=== PATIENT | female | born 1950 | race Caucasian/White ===

== ENCOUNTER → 2020-03-29 09:25 | Outpatient (CLI) | payer MEDICARE, BC, SELFPAY ==
--- NOTE | 2020-03-29 | DI.MRI.S_ITS ---
PROCEDURE: MR KNEE RT WO CON INDICATIONS: Other tear of medial meniscus, current injury TECHNIQUE: Noncontrast sagittal PD fast spin echo and T2 fast spin echo with fat saturation, sagittal 3-D FLASH with fat saturation; coronal T1 spin echo and PD fast spin echo with fat saturation, and axial PD fast spin echo with fat saturation through the knee. COMPARISON: [facility], MR, KNEE WITHOUT CONTRAST, 11/11/2016, 10:08. FINDINGS: Image quality: Excellent. Menisci: The medial and lateral menisci demonstrate normal morphology and internal signal. The meniscal root ligaments appear intact. Cruciate ligaments: The anterior and posterior cruciate ligaments appear intact. Medial structures: Low-grade MCL sprain is seen. The posterior oblique ligament, semimembranosus tendon insertions, oblique popliteal ligament, and meniscocapsular junction appear intact. Visualized portions of the pes anserinus tendons appear normal. No abnormal bursal fluid. Lateral structures: The lateral collateral ligament, long and short heads of the biceps femoris tendon appear intact. The popliteus tendon appears normal; the popliteofibular ligament appears intact. The posterosuperior and anteroinferior popliteomeniscal fascicles appear intact. The arcuate and fabellofibular ligaments appear intact, on either side of the lateral inferior geniculate artery. Iliotibial band appears normal. Anterior structures: The quadriceps and patellar tendons appear intact. Patellar alignment is normal. No femoral trochlear dysplasia or ventral trochlear prominence. No edema in the infrapatellar fat pad. Bones and cartilage: There is marrow edema involving medial portion of proximal tibia extending to medial tibial plateau with subtle subcortical hypointense signal concerning for incomplete subcortical fracture in this area. No other area of abnormal marrow signal. The cartilage of the medial and lateral femorotibial compartments appears normal in thickness. 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 Joint space: There is small to moderate amount of joint fluid. No Mantilla's cyst. Normal appearing synovial plicae are incidentally noted. IMPRESSION: 1. Marrow edema involving medial portion of proximal tibia extending to medial tibial plateau, which may represent bony contusion. Subtle incomplete subcortical fracture in this region cannot be excluded. No other fracture or dislocation. Low-grade chondromalacia patella as above. Small to moderate amount of joint fluid. 2. There is no evidence of focal meniscal tear. 3. Cruciate ligaments are intact. Low-grade MCL sprain. Dictated by: Bk Fitch M.D. on 03/29/2020 at 11:48 Approved by: Bk Fitch M.D. on 03/29/2020 at 11:53
== END ==
PROVIDERS: Family Provider Internal Medicine; PCP Internal Medicine; Referring Provider Orthopaedic Surgery; Visit Provider Orthopaedic Surgery
DX: S83.241A Other tear of medial meniscus, current injury, right knee, initial encounter (principal); S83.411A Sprain of medial collateral ligament of right knee, initial encounter; M22.41 Chondromalacia patellae, right knee
CPT/HCPCS: 73721

== ENCOUNTER 2021-03-27 08:54 | Emergency (ER) | payer MEDICARE, BC, SELFPAY ==
[2021-03-27] VITALS (15 sets, daily range): BP systolic 141–196; BP diastolic 74–87; PULSE 55–77; RESP 15–35; TEMP 36.8; O2SAT 89–99; BMI 29.2
--- NOTE | 2021-03-27 09:09 | DI.RAD.S_ITS ---
PROCEDURE: XR CHEST 1V INDICATIONS: chest pain TECHNIQUE: One view of the chest was acquired. COMPARISON: None. FINDINGS: Surgical changes and devices: None. Lungs and pleura: Lungs are clear. No pleural effusions or pneumothorax. Mediastinum: Mediastinal contours appear normal. Heart size is normal. Bones and chest wall: No suspicious bony lesions. Overlying soft tissues appear unremarkable. IMPRESSION: Normal for age, source of current chest pain symptoms is not seen. Dictated by: Dwight Horton M.D. on 03/27/2021 at 8:30 Approved by: Dwight Horton M.D. on 03/27/2021 at 8:31
[2021-03-27 09:32] LABS: Add Manual Diff / Slide Review NO; Basophils Absolute Auto 0 /uL (0-100); Basophils Percent Auto 0.6 % (0-2); Eosinophils Absolute Auto 100 /uL (0-450); Eosinophils Percent Auto 1.4 % (2-4); Hematocrit 42.2 % (36-46); Lymphocytes Absolute Auto 1400 /uL (1100-4500); Lymphocytes Percent Auto 20.4 % (25-40); Mean Corpuscular HGB Conc 33.2 % (30-36); Mean Corpuscular Volume 87.4 fL (80-100); Monocytes Absolute Auto 600 /uL (0-900); Monocytes Percent Auto 8.2 % (3-14); Neutrophils Absolute Auto 4800 /uL (1500-7000); Neutrophils Percent Auto 69.4 % (50-75); Platelet Count 290 X10^3/uL (150-400); Red Blood Cell Count 4.83 X10^6/uL (4.0-5.2); Red Cell Distribution Width 14.3 % (11.6-14.8)
[2021-03-27 09:35] LABS: Alanine Aminotransferase 30 IU/L (<35); Albumin 4.5 g/dL (3.5-5.0); Albumin Globulin Ratio 1.5 (1.0-2.8); Alkaline Phosphatase 84 U/L (38-126); Aspartate Aminotransferase 31 IU/L (14-36); BUN Creatinine Ratio 35.6 (6-22); Bilirubin Total 0.4 mg/dL (0.2-1.3); Blood Urea Nitrogen 26 mg/dL (7-17); Calcium 9.9 mg/dL (8.4-10.2); Carbon Dioxide 27 mmol/L (22-32); Chloride 102 mmol/L (98-107); Creatine Kinase 31 U/L (30-135); Estimated Glomerular Filt Rate > 60.0 mL/min (>60); Globulin 3.1 g/dL (1.7-4.1); Glucose 113 mg/dL (80-110); HEMOLYSIS < 15 (0-50); Lipase 75 U/L (23-300); Sodium 136 mmol/L (137-145); Total Protein 7.6 g/dL (6.3-8.2)
--- NOTE | 2021-03-27 09:40 | ED_ITS ---
HPI - Chest Pain General Chief Complaint: Chest Pain Stated Complaint: HEART FEELS FLUTTERY AND SLOW Time Seen by Provider: 03/27/21 09:20 Source: patient Mode of arrival: Ambulatory Limitations: no limitations History of Present Illness HPI narrative: Patient is a 70-year-old female who presents with chest palpitat ions. For the last couple of weeks she has been taking her oxygen and heart rate. She has noticed her heart rate as low as 39-40 at times. She denies any dizziness or lightheadedness. She has not passed out or felt lightheaded. She started noticing some palpitations she has taken her blood pressure the last few days it has been elevated the lowest his with a systolic of 150 and the highest is a systolic of 180. She is currently quite hypertensive in the emergency department with a systolic greater than 200. She denies any shortness of breath no headache weakness numbness or tingling. She has no prior history of hypertension. She is noted to have frequent PVCs on the monitor and on her EKG. She takes 1 caffeine pill a day which she says is equivalent to 1 cup of coffee daily. She has history of adult pyloric stenosis and had surgery for that so she is quite nauseous and sensitive to nausea. She is frequently nauseous but does not seem to be any worse today. No vomiting. MD complaint: other (Palpitations) Related Data Allergies Allergy/AdvReac Type Severity Reaction Status Date / Time meperidine [From Demerol] Allergy Verified 03/27/21 09:57 Review of Systems Review of Systems Narrative: GENERAL: Denies chills, fatigue, malaise, fever, sweats, travel HEENT: Denies sinus pain, ear pain, sore throat, difficulty swallowing, neck pain RESPIRATORY: Denies dyspnea, cough, wheezing, hemoptysis, sputum. CARDIOVASCULAR: See HPI GASTROINTESTINAL: Denies nausea, vomiting, abdominal pain, diarrhea, constipation, melena. : Denies dysuria, frequency, incontinence, hematuria, urinary retention, flank pain. MUSCULOSKELETAL: Denies weakness, joint pain, or bony pain SKIN: No rash, no erythema, no pruritus NEUROLOGIC: Denies weakness, dizziness, headache, numbness, change in speech, confusion PSYCHIATRIC: No concerning psychosocial issues. 12 point review of systems is negative except for those stated above and HPI Patient History Medical History Hypothyroid Social History Smoking Status: Never smoker Exam Initial Vital Signs Initial Vital Signs: Vital Signs Temperature 98.2 F 03/27/21 09:52 Pulse Rate 77 03/27/21 09:52 Respiratory Rate 15 03/27/21 09:52 Blood Pressure 187/84 H 03/27/21 09:52 Pulse Oximetry 99 03/27/21 09:52 GENERAL: Alert 70-year-old female very pleasant and in no acute distress. HEENT: Head atraumatic,EOMI, pupils reactive, face symmetric, moist mucous membranes CARDIOVASCULAR: Regular rate and rhythm without murmurs, rubs or gallops. RESPIRATORY: Breath sounds equal bilaterally, no wheezes rales or rhonchi. ABDOMEN: Soft, nontender. Normoactive bowel sounds all 4 quadrants. No guarding or rebound. : No CVA tenderness EXTREMITIES: Normal range of motion, no clubbing or edema. Neurovascularly intact NEUROLOGICAL: Alert and oriented x4.Normal gait and speech. SKIN: Warm, dry, no laceration, no petechiae, no rashes or lesions. Course Orders Ordered: Discontinued Medications Sodium Chloride (Normal Saline 0.9%) 1,000 mls @ 1,000 mls/hr IV BOLUS ONE Stop: 03/27/21 10:55 Last Infusion: 03/27/21 11:41 Dose: 0 mls/hr Documented by: Admin: 03/27/21 10:01 Dose: 1,000 mls/hr Documented by: MELISSA Sodium Chloride (Normal Saline 0.9%) 1,000 mls @ 1,000 mls/hr IV BOLUS ONE Stop: 03/27/21 10:59 Last Admin: 03/27/21 10:01 Dose: Not Given Documented by: MELISSA Metoprolol Tartrate (Metoprolol Tartrate 5 Mg/5 Ml Inj) 5 mg IV NOW ONE Stop: 03/27/21 10:46 Last Admin: 03/27/21 11:05 Dose: 5 mg Documented by: MELISSA Vital Signs Vital signs: Vital Signs - 8 hr 03/27/21 10:41 03/27/21 10:50 03/27/21 11:06 Pulse Rate 69 64 68 Respiratory Rate 29 H 28 H Blood Pressure 196/86 H 184/86 H Pulse Oximetry 97 98 89 L 03/27/21 11:08 03/27/21 11:10 03/27/21 11:20 Pulse Rate 67 62 55 L Respiratory Rate 20 26 H 27 H Blood Pressure 184/87 H 165/84 H 168/74 H Pulse Oximetry 99 97 98 03/27/21 11:30 03/27/21 12:14 Pulse Rate 57 L 61 Respiratory Rate 35 H 24 Blood Pressure 141/83 H 151/83 H Pulse Oximetry 99 96 MDM - Chest Pain Lab Data Attestation: I reviewed the patient's lab results. Result diagrams: 03/27/21 09:10 03/27/21 09:10 Labs: Lab Results 03/27/21 03/27/21 03/27/21 Range/Units 09:10 09:10 09:10 WBC 7.0 (4.5-11.0) X10^3/uL RBC 4.83 (4.0-5.2) X10^6/uL Hgb 14.0 (12.0-16.0) g/dL Hct 42.2 (36-46) % MCV 87.4 (80-100) fL MCH 29.0 (26-34) PG MCHC 33.2 (30-36) % RDW 14.3 (11.6-14.8) % Plt Count 290 (150-400) X10^3/uL Neut % (Auto) 69.4 (50-75) % Lymph % (Auto) 20.4 L (25-40) % [place] % (Auto) 8.2 (3-14) % Eos % (Auto) 1.4 L (2-4) % Baso % (Auto) 0.6 (0-2) % Neut # (Auto) 4800 (0118-1540) /uL Lymph # (Auto) 1400 (4433-3659) /uL [place] # (Auto) 600 (0-900) /uL Eos # (Auto) 100 (0-450) /uL Baso # (Auto) 0 (0-100) /uL Sodium 136 L (137-145) mmol/L Potassium 4.0 (3.4-5.1) mmol/L Chloride 102 (98-107) mmol/L Carbon Dioxide 27 (22-32) mmol/L BUN 26 H (7-17) mg/dL Creatinine 0.73 (0.52-1.04) mg/dL Estimated GFR > 60.0 (>60) mL/min BUN/Creatinine Ratio 35.6 H (6-22) Glucose 113 H (80-110) mg/dL Calcium 9.9 (8.4-10.2) mg/dL Total Bilirubin 0.4 (0.2-1.3) mg/dL AST 31 (14-36) IU/L ALT 30 (<35) IU/L Alkaline Phosphatase 84 (38-126) U/L Total Creatine Kinase 31 (30-135) U/L CK-MB (CK-2) TNP CK-MB (CK-2) Rel Index TNP Troponin I < 0.012 (0.01-0.034) ng/mL Total Protein 7.6 (6.3-8.2) g/dL Albumin 4.5 (3.5-5.0) g/dL Globulin 3.1 (1.7-4.1) g/dL Albumin/Globulin Ratio 1.5 (1.0-2.8) Lipase 75 (23-300) U/L TSH 1.46 (0.47-4.68) uIU/mL Imaging Data Chest x-ray: Radiologist's Impression: PROCEDURE: XR CHEST 1V INDICATIONS: chest pain TECHNIQUE: One view of the chest was acquired. COMPARISON: None. FINDINGS: Surgical changes and devices: None. Lungs and pleura: Lungs are clear. No pleural effusions or pneumothorax. Mediastinum: Mediastinal contours appear normal. Heart size is normal. Bones and chest wall: No suspicious bony lesions. Overlying soft tissues appear unremarkable. IMPRESSION: Normal for age, source of current chest pain symptoms is not seen. Dictated by: Dwight Horton M.D. on 03/27/2021 at 8:30 ECG Data Attestation: I personally reviewed and interpreted this ECG as follows: Prior ECG tracings: not available for review Interpretation: Normal sinus rhythm rate 91 p.r. interval 152 QRS [address] changes PVCs frequently noted on EKG and on monitor right bundle-branch block also noted MDM Narrative Medical decision making narrative: Patient is noted to have frequent PVCs on the monitor despite IV fluids. Her TSH is within normal range unlikely to be causing this. She has minimal caffeine intake. She is symptomatic. I did give her 1 dose of Lopressor which she seemed to tolerate well and did seem to improve the frequency of the PVCs and she felt better. I recommended she follow-up with her primary care provider and possibly Cardiology however explain to her that this is a benign condition Discharge Plan Departure Patient Disposition: Home Clinical Impression: Frequent PVCs Instructions: Premature Ventricular Beats Activity Restrictions/Additional Instructions: *You have been diagnosed with PVCs *What to do: Your heart is skipping a beat frequently which is likely the cause of your palpitations. You were given 1 dose of Lopressor in the emergency department and tolerated it well it seemed test slow down and help some of your PVCs. Please talk with your doctor about this. This is a benign condition is however if you remain symptomatic you may need medications *Continue to take medications as directed *Follow up with your primary care provider in 2-3 days Or as scheduled this week *Return to ER if you should have increasing palpitations dizziness lightheadedness or any new, worsening or concerning symptoms Referrals: Caity Lee MD [Primary Care Provider] -
[2021-03-27 09:46] LABS: Troponin I < 0.012 ng/mL (0.01-0.034)
[2021-03-27] MEDS: SODIUM CHLORIDE 0.9% 1,000 ML 1000 ML IV (10:01)
[2021-03-27 10:42] LABS: Thyroid Stimulating Hormone 1.46 uIU/mL (0.47-4.68)
[2021-03-27] MEDS: METOPROLOL TARTRATE 5 MG/5 ML INJ IV (11:05)
== END 2021-03-27 12:16 | disposition home or self-care (01) ==
PROVIDERS: Emergency Provider Emergency Medicine; Family Provider Internal Medicine; PCP Internal Medicine
DX: I49.3 Ventricular premature depolarization (principal)
CPT/HCPCS: 36415; 71045; 80053; 82550; 83690; 84443; 84484; 85025; 93005; 96361; 96374; 99284

== ENCOUNTER → 2021-06-13 14:35 | Outpatient (CLI) | payer MEDICARE, BC, SELFPAY ==
--- NOTE | 2021-06-13 14:37 | DI.ECHO.S_ITS ---
[place]---------+ [facility] +---------+ : : [address] : : : : [id number] : : : : Phone: [phone] Echocardiogram Report + + :Name: CHRISTIANO ZAFAR Study Date: 06/13/2021 Height: 62.5 in: :[facility] ReadingLocation: Weight: 160 lb : : Gender: Female BSA: 1.7 m2 : :: 1950 Age: 70 yrs BP: 157/92 mmHg: :Reason For Study: PALPITATIONS : :Ordering Physician: ASHUTOSH, : :GEORGIE Performed By: Chantelle Lockwood : :Referring: GEORGIE BOYKIN : + + Interpretation Summary The left ventricle is normal in size. Left ventricular ejection fraction is estimated to be 50 +/- 5%. There are no obvious focal wall motion abnormalities noted but poor endocardial definition reduces the sensitivity for the detection of such. Diastolic parameters suggest a relaxation abnormality of the left ventricle, consistent with probable normal filling pressures. The right ventricle is normal in size and function. Pulmonary artery pressures cannot be estimated because of the lack of a measurable TR jet velocity but the IVC suggests a CVP of around 3 mmHg. The left atrial size is normal. Right atrial size is normal. There is mild mitral regurgitation. The aortic root is normal size. Procedure: A two-dimensional transthoracic echocardiogram with color flow and Doppler was performed. The study quality was technically adequate. There is no prior echocardiogram noted for this patient. The patient was in sinus rhythm with heart rates between 53-72 bpm during the exam. Left Ventricle: The left ventricle is normal in size. Left ventricular wall thickness is mildly increased. Left ventricular ejection fraction is estimated to be 50 +/- 5%. There are no obvious focal wall motion abnormalities noted but poor endocardial definition reduces the sensitivity for the detection of such. Diastolic parameters suggest a relaxation abnormality of the left ventricle, consistent with probable normal filling pressures. Right Ventricle: The right ventricle is normal in size and function. Atria: The left atrial size is normal. Right atrial size is normal. There is no Doppler evidence for an interatrial shunt. Mitral Valve: The mitral valve is normal in structure and function. There is mild mitral regurgitation. Aortic Valve: The aortic valve is trileaflet. The aortic valve opens well. There is no aortic valve stenosis. No aortic regurgitation is present. Tricuspid Valve: The tricuspid valve is normal in structure and function. There is mild tricuspid regurgitation. Pulmonary artery pressures cannot be estimated because of the lack of a measurable TR jet velocity but the IVC suggests a CVP of around 3 mmHg. Pulmonic Valve: The pulmonic valve leaflets are thin and pliable; valve motion is normal. There is trace pulmonic regurgitation. Great Vessels: The aortic root is normal size. The dimensions of the ascending aorta are normal. The IVC is of normal diameter and collapses greater than 50% with a sniff. This suggests a low right atrial pressure of 3 mm Hg. Pericardium/ Pleura There is no pericardial effusion. There is no pleural effusion. MMode/2D Measurements & Calculations LVIDd: 4.7 cm LVOT diam: 2.1 cm LVIDs: 3.5 cm Ao root diam: 3.0 cm FS: 26.0 % asc Aorta Diam: 3.1 cm IVSd: 1.1 cm Ao Arch Diam (Prox Trans): 2.4 cm LVPWd: 1.0 cm LV chauhan. diameter/BSA (cm/m^2): 2.7 LV sys. diameter/BSA (cm/m^2): 2.0 LA A2 area: 16.4 cm2 RA long axis: 5.0 cm LA A4 area: 18.7 cm2 RA area: 13.5 cm2 LA length (vol): 5.1 cm RA vol: 31.0 ml LA vol: 51.0 ml RA : 17.7 ml/m2 LA vol index: 29.1 ml/m2 IVC diam: 1.6 cm RVD1 (basal): 2.9 cm TAPSE: 2.2 cm Doppler Measurements & Calculations Ao V2 max: 123.4 cm/sec LVOT Max Jaison: 77.1 cm/sec Ao V2 mean: 87.5 cm/sec LV V1 max P.4 mmHg Ao max P.1 mmHg LV V1 VTI: 20.2 cm Ao mean P.4 mmHg RUTHIE(I,D): 2.3 cm2 Ao V2 VTI: 30.3 cm RUTHIE(V,D): 2.1 cm2 sev ratio: 0.67 RUTHIE indexed to BSA (cm^2/m^2): 1.3 MV E max jaison: 66.7 cm/sec PA V2 max: 96.9 cm/sec MV A max jaison: 94.5 cm/sec PA V2 mean: 66.4 cm/sec MV E/A: 0.71 PA mean P.0 mmHg Med Peak E' Jaison: 4.8 cm/sec KALI pr(Accel): 29.3 mmHg E/E' med: 13.8 Lat Peak E' Jaison: 8.9 cm/sec E/E' lat: 7.5 E/e' average: 10.6 MV dec time: 0.23 sec SV(LVOT): 69.3 ml Reading Physician:06:30 PM
== END ==
PROVIDERS: Family Provider Internal Medicine; PCP Internal Medicine; Referring Provider Internal Medicine; Visit Provider Internal Medicine
DX: I08.1 Rheumatic disorders of both mitral and tricuspid valves (principal); R00.2 Palpitations; E83.42 Hypomagnesemia
CPT/HCPCS: 93306

== ENCOUNTER 2022-05-18 10:13 | Inpatient (IN) | payer MEDICARE, BC, SELFPAY ==
[2022-05-18 10:38] VITALS: BP 194/91; PULSE 89; RESP 15; TEMP 36.7; O2SAT 96; BMI 29.2
--- NOTE | 2022-05-18 10:42 | DI.RAD.S_ITS ---
PROCEDURE: XR FOOT LT MIN 3V INDICATIONS: dropped a weight on foot. Area of soft tissue redness, swelling, tenderness. Suspicion for infection. TECHNIQUE: 3 views of the foot were acquired. COMPARISON: None. FINDINGS: Bones: No acute fracture or dislocation visualized. Possible periosteal reaction along the medial diaphysis of the 2nd metatarsal. Soft tissues: Prominent soft tissue swelling at the dorsal forefoot. IMPRESSION: 1. No acute fracture visualized. 2. Prominent soft tissue swelling is present at the dorsal aspect of the forefoot, nonspecific. 3. Possible periosteal reaction along the medial diaphysis of the 2nd metatarsal. This is a nonspecific finding. If there is clinical suspicion for infection changes of osteomyelitis could be considered. Sequela of remote injury can also have this appearance. Dictated by: Julito Graff M.D. on 05/18/2022 at 12:02 Approved by: Julito Graff M.D. on 05/18/2022 at 12:09
[2022-05-18 13:28] LABS: Add Manual Diff / Slide Review NO; Basophils Absolute Auto 0 /uL (0-100); Basophils Percent Auto 0.6 % (0-2); Eosinophils Absolute Auto 200 /uL (0-450); Eosinophils Percent Auto 3.6 % (2-4); Hematocrit 37.3 % (36-46); Hemoglobin 12.6 g/dL (12.0-16.0); Lymphocytes Absolute Auto 1300 /uL (1100-4500); Lymphocytes Percent Auto 20.2 % (25-40); Mean Corpuscular HGB Conc 33.9 % (30-36); Mean Corpuscular Hemoglobin 29.1 PG (26-34); Mean Corpuscular Volume 85.9 fL (80-100); Monocytes Absolute Auto 500 /uL (0-900); Monocytes Percent Auto 7.4 % (3-14); Neutrophils Absolute Auto 4300 /uL (1500-7000); Neutrophils Percent Auto 68.2 % (50-75); Platelet Count 288 X10^3/uL (150-400); Red Blood Cell Count 4.34 X10^6/uL (4.0-5.2); White Blood Cell Count 6.3 X10^3/uL (4.5-11.0)
--- NOTE | 2022-05-18 13:36 | ED_ITS ---
HPI - Extremity Injury (Lower) General Chief Complaint: Extremity Injury, Lower Stated Complaint: lt foot infection Time Seen by Provider: 05/18/22 12:04 Source: patient Mode of arrival: Wheelchair Limitations: no limitations History of Present Illness HPI Narrative: This is a 71-year-old female comes emergency department with complaint of wound on her left foot. Patient is on levothyroxine. She dropped a 3 lb weight on her left foot about 10 days. She states there was a small abrasion there was an immediate hematoma that developed. Patient states that she then developed redness, swelling which has spread throughout the foot it is slightly improved but not significantly improved after being on Avelox orally from her primary care physician for 7 days. She denies fevers or chills. She is had some mild nausea. Denies chest pain or shortness of breath. She is had decreased energy. No diarrhea constipation. No abdominal pain. She denies any numbness or tingling throughout her foot. She states it is uncomfortable to weightbear but does not feel like it is the bone. She has not had prior issues with infections in her skin before. Related Data Home Medications Medication Instructions Recorded Confirmed conjugated estrogens 0.3 mg tablet 0.3 mg PO DAILY 05/18/22 05/18/22 (Premarin) dicloxacillin 500 mg capsule 500 mg PO TID 05/18/22 05/18/22 levothyroxine 75 mcg tablet 75 mcg PO DAILY 05/18/22 05/18/22 tramadol 50 mg PO DAILY PRN Pain (Scale 05/18/22 05/18/22 Score 4-6) Previous Rx's Medication Instructions Recorded doxycycline hyclate 100 mg tablet 100 mg PO BID 5 days #10 tabs 05/19/22 oxycodone 10 mg tablet 10 mg PO Q4HR PRN Pain, Moderate 05/19/22 (4-6) 7 days #20 tabs Allergies Allergy/AdvReac Type Severity Reaction Status Date / Time meperidine [From Demerol] Allergy Verified 05/18/22 10:42 Review of Systems Review of Systems ROS Unobtainable: All systems reviewed & are unremarkable except as noted in HPI and below Patient History Medical History Hypertension Hypothyroid Surgical History H/O: hysterectomy Family History Mother No pertinent past medical history Father No pertinent past medical history Other Cancer Hypertension Social History household members: none Smoking Status: Former smoker Smoking Status: Never smoker alcohol intake frequency: holidays/special occasions only Substance Use Type: does not use Exam Narrative Exam Narrative: GENERAL: Alert and oriented x three, mild distress. HEENT: Head normocephalic, atraumatic, EOMI, pupils reactive, face symmetric, moist mucous membranes NECK: Supple, full range of motion CARDIOVASCULAR: Regular rate and rhythm without murmurs, rubs or gallops. RESPIRATORY: Breath sounds equal bilaterally, no wheezes rales or rhonchi. ABDOMEN: Soft, nontender. Normoactive bowel sounds all 4 quadrants. No guarding or rebound, rigidity, no mass : No CVA tenderness EXTREMITIES: Normal range of motion, no clubbing. Neurovascularly intact. Patient has significant swelling over the dorsum of her left foot, there is some fluctuance there is erythema, patient does not have any discrete bony tenderness but does have some bruising over the mid toe of the 5 toes as well as the late ral side of the foot. There is abrasion superficial laceration that appears to be closed over the area of swelling. NEUROLOGICAL: Cranial nerves II through XII grossly intact. Moving all extremities SKIN: Warm, dry, no petechiae, no rashes or lesions otherwise noted than above. Initial Vital Signs Initial Vital Signs: Vital Signs Temperature 98.1 F 05/18/22 10:38 Pulse Rate 89 05/18/22 10:38 Respiratory Rate 15 05/18/22 10:38 Blood Pressure 194/91 H 05/18/22 10:38 Pulse Oximetry 96 05/18/22 10:38 Oxygen Delivery Method 05/18/22 10:38 Procedures Abscess I/D I&D #1: Time of procedure: 15:20 Site: foot (left) Side (if applicable): left Sedation/analgesia: none Local Anesthetic: lidocaine 1% Amount of anesthesia used (mL): 5 Technique: needle aspiration and incised with #11 blade Amount of fluid expressed (mL): 30 Irrigation: Yes (Had 30mL hematoma expressed no purulent fluid noted.) Packing used?: plain Complications: pain Course Orders Ordered: Discontinued Medications Acetaminophen (Acetaminophen 325 Mg Tablet) 975 mg PO Q8H PRN PRN Reason: Pain, Mild (1-3) Last Admin: 05/19/22 08:46 Dose: 975 mg Documented By: Admin: 05/19/22 00:58 Dose: 975 mg Documented By: Admin: 05/18/22 17:11 Dose: 975 mg Documented By: BT Docusate Sodium (Docusate 100 Mg Capsule) 100 mg PO BID [facility] Last Admin: 05/19/22 08:46 Dose: 100 mg Documented By: BT Enoxaparin Sodium (Enoxaparin 40 Mg/0.4 Ml Syringe) 40 mg SUBCUT DAILY [facility] Last Admin: 05/19/22 08:45 Dose: 40 mg Documented By: BT Hydromorphone HCl (Hydromorphone 1 Mg Inj) 1 mg IV Q4H PRN PRN Reason: Breakthrough Pain Last Admin: 05/19/22 10:37 Dose: 1 mg Documented By: RINKU Vancomycin HCl (Vancomycin) 1,250 mg in 250 mls @ 250 mls/hr IV NOW ONE Stop: 05/18/22 13:55 Last Infusion: 05/18/22 15:43 Dose: 0 mls/hr Documented By: Admin: 05/18/22 14:01 Dose: 250 mls/hr Documented By: AT Ceftriaxone Sodium 1,000 mg/ (Sodium Chloride) 100 mls @ 200 mls/hr IV Q24H [facility] Last Infusion: 05/18/22 19:26 Dose: 200 mls/hr Documented By: Admin: 05/18/22 18:17 Dose: 200 mls/hr Documented By: BT Vancomycin HCl (Vancomycin) 1,000 mg in 200 mls @ 200 mls/hr IV Q12H [facility] Last Infusion: 05/19/22 03:27 Dose: 0 mls/hr Documented By: Admin: 05/19/22 02:03 Dose: 200 mls/hr Documented By: ALONDRA Sodium Chloride (Normal Saline 0.9%) 250 mls @ 21 mls/hr IV Q24H PRN PRN Reason: Flush Lidocaine/Prilocaine (Lidocaine/Prilocaine 5 Gm) 5 gm TOP NOW ONE Stop: 05/18/22 14:19 Last Admin: 05/18/22 14:41 Dose: 5 gm Documented By: AT Oxycodone HCl (Oxycodone Ir 5 Mg Tablet) 5 mg PO NOW ONE Stop: 05/18/22 14:23 Last Admin: 05/18/22 14:41 Dose: 5 mg Documented By: AT Oxycodone HCl (Oxycodone Ir 5 Mg Tablet) 5 mg PO Q4HR PRN PRN Reason: Pain, Moderate (4-6) Last Admin: 05/18/22 17:52 Dose: 5 mg Documented By: BT Oxycodone HCl (Oxycodone Ir 5 Mg Tablet) 5 mg PO NOW ONE Stop: 05/18/22 18:55 Last Admin: 05/18/22 19:29 Dose: Not Given Documented By: BT Oxycodone HCl (Oxycodone Ir 5 Mg Tablet) 10 mg PO Q4HR PRN PRN Reason: Pain, Moderate (4-6) Last Admin: 05/19/22 13:41 Dose: 10 mg Documented By: Admin: 05/19/22 06:34 Dose: 10 mg Documented By: Admin: 05/19/22 03:04 Dose: 10 mg Documented By: Admin: 05/18/22 23:09 Dose: 10 mg Documented By: Admin: 05/18/22 19:27 Dose: 10 mg Documented By: CABRERA Polyethylene Glycol (Polyethylene Glycol 3350 17 Gm Powd.Pack) 17 gm PO DAILY PRN PRN Reason: Constipation Last Admin: 05/19/22 08:46 Dose: 17 gm Documented By: CABRERA Sennosides (Sennosides 8.6 Mg Tablet) 8.6 mg PO BEDTIME [facility]AVEL Sodium Chloride (Sodium Chloride 0.9% Flush) 10 ml IV PRN PRN PRN Reason: Flush Last Admin: 05/19/22 03:27 Dose: 10 ml Documented By: Admin: 05/19/22 01:17 Dose: 10 ml Documented By: ALONDRA Sodium Chloride (Sodium Chloride 0.9% Flush) 10 ml IV BID [facility] Last Admin: 05/19/22 08:49 Dose: 10 ml Documented By: Admin: 05/18/22 20:48 Dose: 10 ml Documented By: ALONDRA Vancomycin HCl (Vancomycin Trough) 1 request [facility] [place] [address] PAVEL Stop: 05/20/22 13:31 Vancomycin HCl (Vancomycin Peak) 1 request MISC 1600 [facility] Stop: 05/20/22 16:01 Consultations Consultation #1: Dr. Yee, accepts for admission. failed out patient antibiotics possible osteomyelitis. Time: 14:53 Consultation #2: Dr. Robles, suspect more hematoma with stress fracture but appropriate to go ahead and I and D of blood and pack, if +leave open. And MRI would be appropriate versus CT. Time: 14:59 Vital Signs Vital signs: Vital Signs - 8 hr 05/18/22 10:38 Temperature 98.1 F Pulse Rate 89 Respiratory Rate 15 Blood Pressure 194/91 H Pulse Oximetry 96 Oxygen Delivery Method Room Air MDM - Extremity Injury (Lower) Lab Data Result diagrams: 05/19/22 05:03 05/19/22 05:03 Labs: Lab Results 05/18/22 05/18/22 Range/Units 13:10 13:10 WBC 6.3 (4.5-11.0) X10^3/uL RBC 4.34 (4.0-5.2) X10^6/uL Hgb 12.6 (12.0-16.0) g/dL Hct 37.3 (36-46) % MCV 85.9 (80-100) fL MCH 29.1 (26-34) PG MCHC 33.9 (30-36) % RDW 14.0 (11.6-14.8) % Plt Count 288 (150-400) X10^3/uL Neut % (Auto) 68.2 (50-75) % Lymph % (Auto) 20.2 L (25-40) % Lake % (Auto) 7.4 (3-14) % Eos % (Auto) 3.6 (2-4) % Baso % (Auto) 0.6 (0-2) % Neut # (Auto) 4300 (9955-0396) /uL Lymph # (Auto) 1300 (1667-1084) /uL [place] # (Auto) 500 (0-900) /uL Eos # (Auto) 200 (0-450) /uL Baso # (Auto) 0 (0-100) /uL ESR 30 H (0-20) MM/HR Sodium 137 (137-145) mmol/L Potassium 3.7 (3.4-5.1) mmol/L Chloride 102 (98-107) mmol/L Carbon Dioxide 27 (22-32) mmol/L BUN 13 (7-17) mg/dL Creatinine 0.64 (0.52-1.04) mg/dL Estimated GFR > 60 (>60) mL/min BUN/Creatinine Ratio 20.3 (6-22) Glucose 89 (80-110) mg/dL Calcium 9.2 (8.4-10.2) mg/dL Total Bilirubin 0.5 (0.2-1.3) mg/dL AST 52 H (14-36) IU/L ALT 62 H (<35) IU/L Alkaline Phosphatase 156 H (38-126) U/L C-Reactive Protein 2.6 H (<1.0) mg/dL Total Protein 7.4 (6.3-8.2) g/dL Albumin 4.4 (3.5-5.0) g/dL Globulin 3.0 (1.7-4.1) g/dL Albumin/Globulin Ratio 1.5 (1.0-2.8) Procalcitonin 0.04 (<0.5) ng/mL Imaging Data Extremity x-ray #1: Radiologist's Impression: Selina Doe??71??F??1950 ? Allergy/Adv: meperidine Close Foot X-Ray (Signed) PrernaJulito - 05/18/22 Echocardiogram Ultrasound (Signed) Gregg Lay - 06/13/21 Chest X-Ray (Signed) Dwight Horton - 03/27/21 Knee MRI (Signed) Bk Fitch - 03/29/20 Launch?[place] [id number] XRay Report Signed Patient: Selina Doe MR#: [id number] : 1950 Acct:[id number] Age/Sex: 71 / F Date of Service: 05/18/22 Loc: ED Accession Number: [id number] ?? Procedure: XR foot LT min 3V Ordering Provider: Dannielle Underwood D.O. PROCEDURE:? XR FOOT LT MIN 3V ? INDICATIONS:? dropped a weight on foot.? Area of soft tissue redness, swelling, tenderness.? Suspicion for infection. ? TECHNIQUE:? 3 views of the foot were acquired.? ? COMPARISON:? None. ? FINDINGS:? ? Bones:? No acute fracture or dislocation visualized.? Possible periosteal reaction along the medial diaphysis of the 2nd metatarsal. ? Soft tissues:? Prominent soft tissue swelling at the dorsal forefoot. ? ? IMPRESSION:? 1. No acute fracture visualized. 2. Prominent soft tissue swelling is present at the dorsal aspect of the forefoot, nonspecific. 3. Possible periosteal reaction along the medial diaphysis of the 2nd meta tarsal.? This is a nonspecific finding.? If there is clinical suspicion for infection changes of osteomyelitis could be considered.? Sequela of remote injury can also have this appearance.? ? ? Dictated by: Julito Graff M.D. on 05/18/2022 at 12:02 ? ? Approved by: Julito Graff M.D. on 05/18/2022 at 12:09?? MDM Narrative Medical decision making narrative: This is a 71-year-old female with history of hypothyroidism who dropped a weight on her foot had what is described as and sounds like an immediate hematoma which subsequently became infected. She does have some periosteal reaction on her x- ray and has not been improving with oral antibiotics despite a week of treatment so concern for osteomyelitis was entertained. Discussed with Orthopedic surgery as well as hospitalist. Dr. Yee accepts. Patient covered with a dose of IV antibiotic, I&D performed at bedside which heard a large amount of hematoma. Patient case was also discussed with Dr. Malik who agreed with plan for I and D, suspects this may be more hematoma and less likely actual osteomyelitis but if concern persists MRI. We will be happy to consult if needed. Discharge Plan Departure Patient Disposition: Admitted as Observation Clinical Impression: Cellulitis of foot, left, Hematoma of left foot Admit Date/Time: 05/18/22 15:00 Admit Provider: Mir Yee
[2022-05-18 13:41] LABS: Alanine Aminotransferase 62 IU/L (<35); Albumin 4.4 g/dL (3.5-5.0); Albumin Globulin Ratio 1.5 (1.0-2.8); Alkaline Phosphatase 156 U/L (38-126); Aspartate Aminotransferase 52 IU/L (14-36); BUN Creatinine Ratio 20.3 (6-22); Bilirubin Total 0.5 mg/dL (0.2-1.3); Blood Urea Nitrogen 13 mg/dL (7-17); C-Reactive Protein Quant 2.6 mg/dL (<1.0); Calcium 9.2 mg/dL (8.4-10.2); Carbon Dioxide 27 mmol/L (22-32); Chloride 102 mmol/L (98-107); Estimated Glomerular Filt Rate > 60 mL/min (>60); Glucose 89 mg/dL (80-110); HEMOLYSIS < 15 (0-50); Potassium 3.7 mmol/L (3.4-5.1); Sodium 137 mmol/L (137-145); Total Protein 7.4 g/dL (6.3-8.2)
[2022-05-18 13:49] LABS: Erythrocyte Sedimentation Rate 30 MM/HR (0-20)
[2022-05-18 13:55] LABS: Procalcitonin 0.04 ng/mL (<0.5)
[2022-05-18] MEDS: VANCOMYCIN 1,250 MG/250 ML PIGGYBACK 250 MG IV (14:01)
[2022-05-18] MEDS: LIDOCAINE/PRILOCAINE 5 GM TOP (14:41)
[2022-05-18] MEDS: OXYCODONE IR 5 MG TABLET PO ×2 (14:41→17:52)
[2022-05-18 15:47] VITALS: BP 213/94; PULSE 60; RESP 18; O2SAT 99
[2022-05-18 16:19] LABS: COVID19 -Nasal RAPID Negative (Negative)
[2022-05-18 16:31] VITALS: BP 180/82; PULSE 81; RESP 20; TEMP 36.9; O2SAT 99; BMI 29.2
[2022-05-18] MEDS: ACETAMINOPHEN 325 MG TABLET 975 MG PO (17:11)
--- NOTE | 2022-05-18 17:21 | P.HP_ITS ---
History of Present Illness History of Present Illness Date Patient Seen: 05/18/22 Time Patient Seen: 17:15 Chief complaint: lt foot infection Narrative: This is a 71-year-old female with past medical history of psoriasis, hypothyroidism, and prior hypertension previously on medications who presented to the emergency room at the direction of her primary care office for a worsening left foot infection. The patient dropped a dumbbell on her foot approximately 2 and half weeks ago. She initially had a hematoma which continued to expand slightly but never passed her ankle. She tried to keep her leg elevated, but soon after some redness started to develop. She had another follow-up with her primary care provider 5 days ago for this redness, whom started the patient on moxifloxacin for a possible cellulitis. She continued to take the antibiotic and the redness improved very slightly, but still stayed there and she still has some quite significant pain. Her primary care provider sent her to the ER for further evaluation after follow-up today for failure of antibiotic therapy. She continues to have redness and pain today, though after a drainage of the hematoma in the emergency room the pressure has since relieved. She has been able to bear weight on her foot since this started and denies any difficulty walking. She denies any fever, chills, chest pain, shortness of breath, palpitations, abdominal pain, nausea, or vomiting. In the emergency room, the patient was hypertensive, but the remainder of her vital signs were unremarkable. Laboratory evaluation showed an unremarkable CBC, elevated ESR at 30 CRP at 2.6, mildly elevated transaminase levels, but no other significant abnormal chemistries. Blood cultures were sent. COVID-19 testing was negative. Radiograph of her left foot revealed prominent soft tissue swelling, a possible periosteal reaction along the medial diaphysis of the 2nd metatarsal. She was admitted for a left foot cellulitis that had failed outpatient antibiotic therapy. Patient History Medical History Hypertension Hypothyroid Surgical History (Updated 05/18/22 @ 17:24 by Mir Yee DO) H/O: hysterectomy Family & Social History Family History (Updated 05/18/22 @ 17:44 by Mir Yee DO) Mother No pertinent past medical history Father No pertinent past medical history Other Cancer Hypertension Safety & Behavioral: Feels Safe in Current Yes Environment Been Physically Hurt or No Threatened By a Person Tobacco & Substance use: Tobacco type cigarettes Smoking Status Former smoker alcohol intake frequency holiday/special occasion Substance Use Type does not use Meds Home Medications and Allergies Home Medications Medication Instructions Recorded Confirmed Type acetaminophen 300 mg-codeine 30 mg 1 tab BEDTIME PRN Pain (Scale 05/18/22 05/18/22 History tablet Score 4-6) conjugated estrogens 0.3 mg tablet 0.3 mg PO DAILY 05/18/22 05/18/22 History (Premarin) dicloxacillin 500 mg capsule 500 mg PO TID 05/18/22 05/18/22 History levothyroxine 75 mcg tablet 75 mcg PO DAILY 05/18/22 05/18/22 History tramadol 50 mg PO DAILY PRN Pain (Scale 05/18/22 05/18/22 History Score 4-6) Allergies Allergy/AdvReac Type Severity Reaction Status Date / Time meperidine [From Demerol] Allergy Verified 05/18/22 10:42 Review of Systems Review of Systems Narrative: All other systems reviewed with the patient and are negative unless otherwise stated. Exam Vital Signs (past 8 hours): - 05/18/22 10:38 05/18/22 15:47 05/18/22 16:31 Temperature 98.1 F Pulse Rate 89 60 Respiratory Rate 15 18 Blood Pressure 194/91 H 213/94 H Pulse Oximetry 96 99 99 Oxygen Delivery Method Room Air Room Air Room Air Oxygen Flow Rate 0 05/18/22 16:31 Temperature 98.4 F Pulse Rate 81 Respiratory Rate 20 Blood Pressure 180/82 H Pulse Oximetry 99 Oxygen Delivery Method Oxygen Flow Rate 0 Oxygen Delivery Method Room Air Oxygen Flow Rate 0 Narrative Exam Narrative: General:? Patient is well developed and well nourished, in no distress at this time. HEENT:? Normocephalic, atraumatic, extraocular muscles intact, oral pharynx is clear and mucous membranes are moist. Neck: supple and symmetric, trachea is midline, no cervical adenopathy. Negative for JVD Chest:? Normal AP diameter and contour without kyphoscoliosis, no tachypnea, equal chest rise bilaterally. Lungs:? CTA b/l no wheezing rhonchi or rales. Cardio:?RRR no m/r/g. Abdomen: S NT ND. Musculoskeletal:? Muscle strength and tone are equal within normal limits, no deformity. Extremities: No edema or joint effusions. No cyanosis or clubbing. Skin:? L foot with moderate sized area (approx 4 cm) of round erythema surrounding recent I&D in the ER. Does not extend into toes or ankle. Lesion is on the dorsum of her foot.? Neuro:? Alert and orientated x3,? sensation to touch intact in all extremities, no gross deficits noted of cranial nerves. Psych:? Patient has a well-kept appearance, appropriate affect, mental status attitude thought context and judgment are appropriate for age. Objective Labs Result Diagrams: 05/18/22 13:10 05/18/22 13:10 Labs: Laboratory Results - last 24 hr 05/18/22 05/18/22 05/18/22 13:10 13:10 15:24 WBC 6.3 RBC 4.34 Hgb 12.6 Hct 37.3 MCV 85.9 MCH 29.1 MCHC 33.9 RDW 14.0 Plt Count 288 Neut % (Auto) 68.2 Lymph % (Auto) 20.2 L [place] % (Auto) 7.4 Eos % (Auto) 3.6 Baso % (Auto) 0.6 Neut # (Auto) 4300 Lymph # (Auto) 1300 [place] # (Auto) 500 Eos # (Auto) 200 Baso # (Auto) 0 ESR 30 H Sodium 137 Potassium 3.7 Chloride 102 Carbon Dioxide 27 BUN 13 Creatinine 0.64 Estimated GFR > 60 BUN/Creatinine Ratio 20.3 Glucose 89 Calcium 9.2 Total Bilirubin 0.5 AST 52 H ALT 62 H Alkaline Phosphatase 156 H C-Reactive Protein 2.6 H Total Protein 7.4 Albumin 4.4 Globulin 3.0 Albumin/Globulin Ratio 1.5 Procalcitonin 0.04 SARS-CoV-2 (PCR) Negative Assessment & Plan Assessment & Plan narrative: 1. L foot cellulitis, rule out osteomyelitis - start ceftriaxone, given vancomycin in the ER. - failed outpatient moxifloxacin. - given periosteal findings on XR, indeterminant but elevated ESR and CRP, rule out osteomyelitis with MRI. May represent fracture as well which MRI will also be helpful in determining. - consider orthopedics, though per ER provider I&D showed most likely a hematoma. Follow up any cultures sent. - keep L leg elevated as much as possible. 2. HTN - will treat patient's underlying pain first, follow response with BP. - consider starting amlodipine (previously on beta ara which she states did not do well with her psoriasis) if she remains hypertensive. 3. Hypothyroidism - continue home levothyroxine. Code: Full, surrogate decision maker is the patient's Brother DVT: Lovenox daily Dispo: Patient admitted under inpatient status as her stay is expected to exceed two midnights. I have utilized all available immediate resources to obtain, update, or review the patient's current medications. Time Spent With Patient Critical Care time: I spent a total of [] minutes of critical care time on this patient's care today; this time is exclusive of procedural time. Quality VTE Deep Vein Thrombosis/Pulmonary Embolism Present on Admission: No MIPS - Admit I confirm the patient?s Advance Care Plan is present, Code status is documented, Surrogate decision maker is in patient?s record [If Yes, STOP here]: Yes
--- NOTE | 2022-05-18 17:56 | DI.MRI.S_ITS ---
PROCEDURE: MR FOOT LT WO/W CON INDICATIONS: r/o osteomyelitis TECHNIQUE: Noncontrast sagittal T1 spin echo and T2 fast spin echo with fat saturation, long-axis T1 spin echo and T2 fast spin echo with fat saturation; short-axis T1 spin echo, proton density fast spin echo, and T2 fast spin echo with fat saturation through the forefoot. Post-contrast short axis, long axis, and sagittal T1 spin echo with fat saturation through the forefoot. COMPARISON: [facility], CR, XR FOOT LT MIN 3V, 05/18/2022, 10:47. FINDINGS: Image quality: Excellent. Bones and joints: No suspicious osseous enhancement. No bone marrow contusions or metatarsal stress fractures. The sesamoid bones appear in expected positions, without internal edema. No intraosseous lesions. Soft tissues: Skin irregularity is seen at the dorsum of the foot with overlying bandage material. There is an adjacent subcutaneous collection of fluid at the dorsum of the foot measuring approximately 5.1 x 1.4 x 4.5 cm. The fluid demonstrates intrinsic T1-hyperintense signal. Hypointense foci within the collection are suspicious for gas, which may be related to communication with the skin surface or infection with a gas-forming organism. Surrounding subcutaneous soft tissue edema is present. Mild chronic pressure related changes are seen at the plantar aspect of the foot adjacent to the 1st, 4th, and 5th metatarsal heads. The visualized plantar foot muscles demonstrate normal signal and bulk. Visualized flexor and extensor tendons appear intact, without tenosynovitis. The distal insertions of the peroneus brevis and longus tendons appear intact. The principal Lisfranc ligament appears intact. No soft tissue ganglion cysts or bursal fluid collections. Sagittal images demonstrate no evidence for plantar plate tears. IMPRESSION: 1. Skin irregularity at the dorsum of the foot with an adjacent subcutaneous T1-hyperintense fluid collection or abscess. Foci of gas may be secondary to communication with the skin surface or infection with a gas-forming organism. 2. No MR evidence of osteomyelitis. Dictated by: Julito Kerr M.D. on 05/19/2022 at 10:19 Approved by: Julito Kerr M.D. on 05/19/2022 at 10:29
[2022-05-18] MEDS: cefTRIAXone 1,000 MG in SODIUM CHLORIDE 0.9% 100 ML 200 MG IV (18:17)
[2022-05-18] MEDS: OXYCODONE IR 5 MG TABLET 10 MG PO ×2 (19:27→23:09)
[2022-05-18 20:10] VITALS: BP 138/57; PULSE 61; RESP 18; TEMP 36.3; O2SAT 96
[2022-05-18 20:26] VITALS: O2SAT 96
[2022-05-18] MEDS: SODIUM CHLORIDE 0.9% FLUSH 10 ML IV (20:48)
--- NOTE | 2022-05-18 22:57 | P.CONS_ITS ---
History of Present Illness Consult details Date Patient Seen: 05/19/22 Time Patient Seen: 10:53 Chief complaint: lt foot infection Reason for consult: Osteomyelitis versus hematoma? Requesting provider: Mir Yee Narrative: I am contacted by Dr. Underwood of the ER and the half of Dr. Felton hospitalist regarding 71-year-old female with the foot swelling and pain and redness history of dropping a weight on her foot 2 weeks ago. She had pain swelling and redness. She was treated on outpatient oral antibiotics by the PCP this did not get better and was sent to the ER for evaluation. Orthopedics was called after a questionable periosteal reaction along the 2nd metatarsal on x-ray and concern for possible cellulitis or osteomyelitis. There is a large soft tissue swelling over the dorsum of the foot in the same area. On discussion over the phone with the ER doctor and the history of dropping direct weight on the dorsum of the foot it is felt this most likely represents a incomplete fracture of the 2nd m etatarsal and associated fracture hematoma. Reportedly the area of swelling over the dorsum of the foot was tense and fluctuant. I agree with incision and drainage in the ER. Discussed if this is hematoma likely traumatic cause and less likely infectious. If it is purulence then would pursue additional washout or antibiotics as indicated. Patient seen on the floor05/19/2022. She is status post I and D by ER that demonstrated hematoma and old coagulated blood. No active bleeding. Packing was placed. She was admitted to the medicine service. Prior to my arrival today MRI was obtained. The patient has just returned her room. States her foot getting swollen again. States was flat after the drainage in the emergency room. Denies fevers or chills. Meds Home Medications and Allergies Home Medications Medication Instructions Recorded Confirmed Type acetaminophen 300 mg-codeine 30 mg 1 tab BEDTIME PRN Pain (Scale 05/18/22 05/18/22 History tablet Score 4-6) conjugated estrogens 0.3 mg tablet 0.3 mg PO DAILY 05/18/22 05/18/22 History (Premarin) dicloxacillin 500 mg capsule 500 mg PO TID 05/18/22 05/18/22 History levothyroxine 75 mcg tablet 75 mcg PO DAILY 05/18/22 05/18/22 History tramadol 50 mg PO DAILY PRN Pain (Scale 05/18/22 05/18/22 History Score 4-6) Allergies Allergy/AdvReac Type Severity Reaction Status Date / Time meperidine [From Demerol] Allergy Verified 05/18/22 10:42 Review of Systems Review of Systems ROS: Yes All systems reviewed with the patient and are negative except as otherwise documented Exam Vital Signs (past 8 hours): - 05/18/22 15:47 05/18/22 16:31 05/18/22 16:31 Temperature 98.4 F Pulse Rate 60 81 Respiratory Rate 18 20 Blood Pressure 213/94 H 180/82 H Pulse Oximetry 99 99 99 Oxygen Delivery Method Room Air Room Air Oxygen Flow Rate 0 0 05/18/22 20:10 05/18/22 20:26 Temperature 97.3 F L Pulse Rate 61 Respiratory Rate 18 Blood Pressure 138/57 L Pulse Oximetry 96 96 Oxygen Delivery Method Room Air Oxygen Flow Rate Oxygen Delivery Method Room Air Oxygen Flow Rate 0 Narrative Exam Narrative: Physical exam alert oriented female no acute distress sitting up in bed. HEENT exam normocephalic atraumatic. Respiratory exam unlabored on room air. Heart exam regular rate and rhythm. Musculoskeletal exam demonstrates left foot with dressing in place of the dorsum of the foot. This is removed. There is swelling over the dorsum the foot with induration. No cellulitis. A proximally 1 cm longitudinal incision centered around the 2nd 3rd meta tarsal the dorsum of the foot where there is a packing click. Moderate swelling. Some small blistering around the toes. No large blisters. No ecchymosis. No swelling about the ankle or calf. Wiggles toes. Demonstrates dorsiflexion plantar flexion of the ankle. Calf is soft. Tenderness with compression over the dorsal swelling. Objective Imaging Left foot x-ray: My impression: Three views of the left foot demonstrate dorsal swelling over the foot. No obvious fractures. Joint space is well maintained Labs Result Diagrams: 05/19/22 05:03 05/19/22 05:03 Labs: Laboratory Results - last 24 hr 05/18/22 05/18/22 05/18/22 13:10 13:10 15:24 WBC 6.3 RBC 4.34 Hgb 12.6 Hct 37.3 MCV 85.9 MCH 29.1 MCHC 33.9 RDW 14.0 Plt Count 288 Neut % (Auto) 68.2 Lymph % (Auto) 20.2 L [place] % (Auto) 7.4 Eos % (Auto) 3.6 Baso % (Auto) 0.6 Neut # (Auto) 4300 Lymph # (Auto) 1300 [place] # (Auto) 500 Eos # (Auto) 200 Baso # (Auto) 0 ESR 30 H Sodium 137 Potassium 3.7 Chloride 102 Carbon Dioxide 27 BUN 13 Creatinine 0.64 Estimated GFR > 60 BUN/Creatinine Ratio 20.3 Glucose 89 Calcium 9.2 Total Bilirubin 0.5 AST 52 H ALT 62 H Alkaline Phosphatase 156 H C-Reactive Protein 2.6 H Total Protein 7.4 Albumin 4.4 Globulin 3.0 Albumin/Globulin Ratio 1.5 Procalcitonin 0.04 SARS-CoV-2 (PCR) Negative PFSH Medical History Hypertension Hypothyroid Surgical History H/O: hysterectomy Family History Mother No pertinent past medical history Father No pertinent past medical history Other Cancer Hypertension Tobacco & Substance Use Smoking Status: Former smoker Assessment & Plan Assessment and plan (1) Hematoma of left foot: Status: Acute Plan Hematoma left foot dorsum from direct drop of weight on the dorsum of the foot. No evidence of infection. No bony injury. MRI was evaluated this shows the changes from the hematoma and packing was in place time of the MRI. --I saw the patient on the floor. I changed her dressing removed packing and displaced a small weight just enough to keep the wound open to drain. I did decompress the more old blood and coagulated hematoma from the area. The patient tolerated this well. A new dressing was placed. Patient may weight bear as tolerated in in a comfortable shoe or sandal or postop shoe as able. Assistive devices as needed Should do daily dressing change to her foot. May shower. Then dry the area. But a small packing wick or corner of a piece of gauze into the wound just enough that some drainage can continue and then cover with clean gauze and a wrap. Once showing scant drainage on the gauze probably a few days from now can stop placing the packing wick. Can follow-up with her PCP or Orthopedics in [facility] to evaluate healing. Discussed occasionally skin will in an area of a large hematoma and she may need wound care for coverage. In addition currently looks healthy and no signs of necrosis at this point. Discussed occasional hematomas can become infected or need additional operative debridement. I do not see any signs of that at this time. CRP was slightly elevated on admission. this is a nonspecific factor and consistent with inflammation the injury she has. COVID-19 COVID-19 status: Negative Time Spent With Patient Time with patient: less than 30 minutes Critical Care time: I spent a total of [] minutes of critical care time on this patient's care tod ay; this time is exclusive of procedural time.
[2022-05-19] VITALS: BP 165/67; PULSE 66; RESP 17; TEMP 36.2; O2SAT 97
[2022-05-19] MEDS: ACETAMINOPHEN 325 MG TABLET 975 MG PO ×2 (00:58→08:46)
--- NOTE | 2022-05-19 01:05 | PC.NURSE ---
C/O pressure pain to her left foot. Loosened her coban wrap, ice pack applied. Too early for Oxycodone, declined 1 mg. pain medication Dilaudid states I never been taking that stronger pain medication. 975 mg. of Tylenol administered. Will cont. POC & monitor.
[2022-05-19] MEDS: SODIUM CHLORIDE 0.9% FLUSH 10 ML IV ×3 (01:17→08:49)
[2022-05-19] MEDS: VANCOMYCIN 1,000 MG/200 ML PIGGYBACK 200 MG IV (02:03)
[2022-05-19] MEDS: OXYCODONE IR 5 MG TABLET 10 MG PO ×3 (03:04→13:41)
[2022-05-19 03:58] VITALS: BP 134/60; PULSE 68; RESP 17; TEMP 36.3; O2SAT 97
[2022-05-19 04:00] VITALS: O2SAT 97
[2022-05-19 05:18] LABS: Add Manual Diff / Slide Review NO; Basophils Absolute Auto 0 /uL (0-100); Basophils Percent Auto 0.7 % (0-2); Eosinophils Absolute Auto 300 /uL (0-450); Eosinophils Percent Auto 4.9 % (2-4); Hematocrit 34.8 % (36-46); Lymphocytes Absolute Auto 1500 /uL (1100-4500); Lymphocytes Percent Auto 21.8 % (25-40); Mean Corpuscular HGB Conc 34.4 % (30-36); Mean Corpuscular Hemoglobin 29.5 PG (26-34); Mean Corpuscular Volume 85.7 fL (80-100); Monocytes Absolute Auto 800 /uL (0-900); Monocytes Percent Auto 11.2 % (3-14); Neutrophils Absolute Auto 4300 /uL (1500-7000); Neutrophils Percent Auto 61.4 % (50-75); Platelet Count 263 X10^3/uL (150-400); Red Blood Cell Count 4.06 X10^6/uL (4.0-5.2); White Blood Cell Count 7.1 X10^3/uL (4.5-11.0)
[2022-05-19 05:26] LABS: Alanine Aminotransferase 50 IU/L (<35); Albumin 3.8 g/dL (3.5-5.0); Albumin Globulin Ratio 1.5 (1.0-2.8); Alkaline Phosphatase 126 U/L (38-126); Aspartate Aminotransferase 39 IU/L (14-36); BUN Creatinine Ratio 22.9 (6-22); Bilirubin Total 0.3 mg/dL (0.2-1.3); Blood Urea Nitrogen 16 mg/dL (7-17); Calcium 8.7 mg/dL (8.4-10.2); Carbon Dioxide 26 mmol/L (22-32); Chloride 103 mmol/L (98-107); Estimated Glomerular Filt Rate > 60 mL/min (>60); Globulin 2.6 g/dL (1.7-4.1); Glucose 93 mg/dL (80-110); HEMOLYSIS < 15 (0-50); Magnesium 2.1 mg/dL (1.6-2.3); Potassium 4.3 mmol/L (3.4-5.1); Sodium 136 mmol/L (137-145); Total Protein 6.4 g/dL (6.3-8.2)
[2022-05-19 07:53] VITALS: BP 166/63; PULSE 74; RESP 18; TEMP 36.9; O2SAT 98
[2022-05-19 08:00] VITALS: O2SAT 99
[2022-05-19] MEDS: ENOXAPARIN 40 MG/0.4 ML SYRINGE SUBCUT (08:45)
[2022-05-19] MEDS: DOCUSATE 100 MG CAPSULE PO (08:46)
[2022-05-19] MEDS: polyethylene glycoL 3350 17 GM POWD.PACK PO (08:46)
--- NOTE | 2022-05-19 09:23 | CM.DANOTE ---
DCP: Case received, EMR reviewed and met with patient. Introduced self and role. Was able to obtain information regarding patient's baseline activity level at home prior to hospitalization. DCP assessment completed with information currently available. Patient is a 71 year old female who admitted yesterday afternoon to the care of the hospitalist team. PCP: Dr. Lee. Payer: confirmed: Medicare/[employer]. Patient came to the hospital via private vehicle secondary to having complaints of a wound on her left foot. Patient had dropped a weight on her foot about 10 days ago, and developed some swelling and redness. Patient had seen her primary care provider in [place], and had been placed on oral antibiotics, with minimal effect. Patient was diagnosed with cellulitis, rule out osteomyelitis. Patient has had I&D done. MRI is pending. Met with patient in her room. She is alert and oriented, pleasant. Confirmed that she resides alone in [place]. She has a friend, Pearl Dominguez, who lives nearby, and brought her here to the hospital. Patient is independent at her baseline. She had recently seen Dr. Lee for her foot, stated, she has just been hobbling around the house. She also stated, she tried using her friend's crutches, but hurt her wrist using them. Did mention to patient the possibility should she need longer term IV antibiotics in the home setting, which she is not opposed to if needed. Patient does have Medicare primary, but has a secondary insurance, [employer], would depend upon her share of cost. Mentioned the option of home health as well, should she need nursing to come out and assess her foot, as long as she is home bound. Patient is opened to all options. At this time, it depends on MRI. P: DCP to continue to follow, and will be available for any resources needed. Will discuss further in team rounds. Ana Palma RN/Abstract Searcher Discharge Planning/Care Management CM Discharge Assessment Start: 05/19/22 09:19 Freq: Status: Active Protocol: Document 05/19/22 09:19 (Rec: 05/19/22 09:23 [id number]) Discharge Planning Assessment Assigned Ticket Seller Ana Palma RN/Abstract Searcher Advance Directives? No History Provided By Patient,Medical Record Prior Living Arrangements House Household Members none Type of transporation used prior to Drives own vehicle admit Independent with ADL's Yes Is patient alert and oriented? Yes Caregiver for Another No Barriers to Discharge No Comment Will depend if patient needs supervisor intermediates IV ABO Discharge Plan Home Transportation Arrangement Friend Referrals Initiated Other Additional Comment Will see if there are any needs for home IV and if she needs wound care at home which could entail home health. Whiteboard Updated in Patient Room with Yes name and ext. # of Ticket Seller Review Status In Process Next Review Type Continued Stay Review
[2022-05-19] MEDS: HYDROMORPHONE 1 MG INJ IV (10:37)
--- NOTE | 2022-05-19 11:39 | P.DS_ITS ---
History of Present Illness History of Present Illness Date Patient Seen: 05/19/22 Chief complaint: lt foot infection Narrative: This is a 71-year-old female with past medical history of psoriasis, hypothyroidism, and prior hypertension previously on medications who presented to the emergency room at the direction of her primary care office for a worsening left foot infection. The patient dropped a dumbbell on her foot approximately 2 and half weeks ago. She initially had a hematoma which continued to expand slightly but never passed her ankle. She tried to keep her leg elevated, but soon after some redness started to develop. She had another follow-up with her primary care provider 5 days ago for this redness, whom started the patient on moxifloxacin for a possible cellulitis. She continued to take the antibiotic and the redness improved very slightly, but still stayed th ere and she still has some quite significant pain. Her primary care provider sent her to the ER for further evaluation after follow-up today for failure of antibiotic therapy. She continues to have redness and pain today, though after a drainage of the hematoma in the emergency room the pressure has since relieved. She has been able to bear weight on her foot since this started and denies any difficulty walking. She denies any fever, chills, chest pain, shortness of breath, palpitations, abdominal pain, nausea, or vomiting. In the emergency room, the patient was hypertensive, but the remainder of her vital signs were unremarkable. Laboratory evaluation showed an unremarkable CBC, elevated ESR at 30 CRP at 2.6, mildly elevated transaminase levels, but no other significant abnormal chemistries. Blood cultures were sent. COVID-19 testing was negative. Radiograph of her left foot revealed prominent soft tissue swelling, a possible periosteal reaction along the medial diaphysis of the 2nd metatarsal. She was admitted for a left foot cellulitis that had failed outpatient antibiotic therapy. Discharge Providers Provider Date of admission: 05/18/22 15:00 Discharge Date: 05/19/22 Primary care physician: Caity Lee MD Discharge provider: Mir Yee DO Summary Hospital Course Discharge Diagnosis: 1. L foot cellulitis, ruled out osteomyelitis, L foot traumatic hematoma 2. HTN 3. Hypothyroidism Hospital Course: This is a 71-year-old female with a past medical history of hypertension and hypothyroidism who was admitted for a left foot cellulitis after dropping dumbbell on her foot approximately 2 weeks ago. She had failed attempted outpatient oral antibiotics by her primary care provider. Her cellulitis improved much more quickly than expected after drainage of her hematoma. She had an I&D in the emergency room of a fluid collection which was likely a hematoma. There was another drainage with Orthopedic surgery the following day and a wick was placed. The patient was given instructions on dressing changes and instructed to follow-up with her primary care provider or the orthopedic clinic. Given some mild periosteal changes on x-ray were noted on admission, and mildly elevated inflammatory markers. MRI was obtained to rule out my osteomyelitis which did not show any evidence of fracture or osteomyelitis. Her cellulitis had resolved with MRSA coverage, as initially she was started on ceftriaxone and vancomycin. Given improvement in pain, and cellulitis, the patient was discharged the following day to continue her dicloxacillin which she had received from her primary care provider and additionally I prescribed doxycycline to cover for a possible MRSA infection. A culture was sent from the her I&D in the emergency room, which currently has no growth. Time Spent with Patient Time spent: Greater than 30 minutes Exam Vital Signs (past 8 hours): - 05/19/22 03:58 05/19/22 04:00 05/19/22 07:53 Temperature 97.3 F L 98.5 F Pulse Rate 68 74 Respiratory Rate 17 18 Blood Pressure 134/60 166/63 H Pulse Oximetry 97 97 98 Oxygen Delivery Method Room Air Oxygen Flow Rate 0 0 05/19/22 08:00 Temperature Pulse Rate Respiratory Rate Blood Pressure Pulse Oximetry 99 Oxygen Delivery Method Room Air Oxygen Flow Rate 0 Oxygen Delivery Method Room Air Oxygen Flow Rate 0 Narrative Exam Narrative: General:? Patient is well developed and well nourished, in no distress at this time. HEENT:? Normocephalic, atraumatic, extraocular muscles intact, oral pharynx is clear and mucous membranes are moist. Neck: supple and symmetric, trachea is midline, no cervical adenopathy. Negative for JVD Chest:? Normal AP diameter and contour without kyphoscoliosis, no tachypnea, equal chest rise bilaterally. Lungs:? CTA b/l no wheezing rhonchi or rales. Cardio:?RRR no m/r/g. Abdomen: S NT ND. Musculoskeletal:? Muscle strength and tone are equal within normal limits, no deformity. Extremities: No edema or joint effusions. No cyanosis or clubbing. Skin:? L foot with now dressed, no obvious erythema today. Neuro:? Alert and orientated x3,? sensation to touch intact in all extremities, no gross deficits noted of cranial nerves. Psych:? Patient has a well-kept appearance, appropriate affect, mental status attitude thought context and judgment are appropriate for age. Objective Labs Result Diagrams: 05/19/22 05:03 05/19/22 05:03 Labs: Laboratory Results - last 24 hr 05/18/22 05/18/22 05/18/22 13:10 13:10 15:24 WBC 6.3 RBC 4.34 Hgb 12.6 Hct 37.3 MCV 85.9 MCH 29.1 MCHC 33.9 RDW 14.0 Plt Count 288 Neut % (Auto) 68.2 Lymph % (Auto) 20.2 L [place] % (Auto) 7.4 Eos % (Auto) 3.6 Baso % (Auto) 0.6 Neut # (Auto) 4300 Lymph # (Auto) 1300 [place] # (Auto) 500 Eos # (Auto) 200 Baso # (Auto) 0 ESR 30 H Sodium 137 Potassium 3.7 Chloride 102 Carbon Dioxide 27 BUN 13 Creatinine 0.64 Estimated GFR > 60 BUN/Creatinine Ratio 20.3 Glucose 89 Calcium 9.2 Magnesium Total Bilirubin 0.5 AST 52 H ALT 62 H Alkaline Phosphatase 156 H C-Reactive Protein 2.6 H Total Protein 7.4 Albumin 4.4 Globulin 3.0 Albumin/Globulin Ratio 1.5 Procalcitonin 0.04 SARS-CoV-2 (PCR) Negative 05/19/22 05/19/22 05:03 05:03 WBC 7.1 RBC 4.06 Hgb 12.0 Hct 34.8 L MCV 85.7 MCH 29.5 MCHC 34.4 RDW 14.0 Plt Count 263 Neut % (Auto) 61.4 Lymph % (Auto) 21.8 L [place] % (Auto) 11.2 Eos % (Auto) 4.9 H Baso % (Auto) 0.7 Neut # (Auto) 4300 Lymph # (Auto) 1500 [place] # (Auto) 800 Eos # (Auto) 300 Baso # (Auto) 0 ESR Sodium 136 L Potassium 4.3 Chloride 103 Carbon Dioxide 26 BUN 16 Creatinine 0.70 Estimated GFR > 60 BUN/Creatinine Ratio 22.9 H Glucose 93 Calcium 8.7 Magnesium 2.1 Total Bilirubin 0.3 AST 39 H ALT 50 H Alkaline Phosphatase 126 C-Reactive Protein Total Protein 6.4 Albumin 3.8 Globulin 2.6 Albumin/Globulin Ratio 1.5 Procalcitonin SARS-CoV-2 (PCR) [facility] Medical History Hypertension Hypothyroid Surgical History H/O: hysterectomy Family History Mother No pertinent past medical history Father No pertinent past medical history Other Cancer Hypertension Social History household members: none Smoking Status: Former smoker Discharge Plan Discharge Plan Patient Disposition: Home Provider Discharge Comment: You were admitted to the hospital after a hematoma with cellulitis on your left foot. Please complete antibiotics for cellulitis prescribed by your primary care provider, an additional antibiotic was added for possible MRSA. Continue dressing changes recommended by Dr. Robles. Change your dressing each day. Follow up with your PCP initially to continue to monitor your hematoma. Dr. Robles's recommendations are noted here: Patient may weight bear as tolerated in in a comfortable shoe or sandal or postop shoe as able. Assistive devices as needed Should do daily dressing change to her foot. May shower. Then dry the area. But a small packing wick or corner of a piece of gauze into the wound just en ough that some drainage can continue and then cover with clean gauze and a wrap. Once showing scant drainage on the gauze probably a few days from now can stop placing the packing wick. Can follow-up with her PCP or Orthopedics in [place] [facility] to evaluate healing. Discussed occasionally skin will in an area of a large hematoma and she may need wound care for coverage. In addition currently looks healthy and no signs of necrosis at this point. Discussed occasional hematomas can become infected or need additional operative debridement. I do not see any signs of that at this time. CRP was slightly elevated on admission. this is a nonspecific factor and consistent with inflammation the injury she has. Discharge orders & Medications Prescriptions: New oxycodone 10 mg tablet 10 mg PO Q4HR PRN (Reason: Pain, Moderate (4-6)) 7 Days Qty: 20 0RF doxycycline hyclate 100 mg tablet 100 mg PO BID 5 Days Qty: 10 0RF Continued dicloxacillin 500 mg capsule 500 mg PO TID levothyroxine 75 mcg tablet 75 mcg PO DAILY Premarin 0.3 mg tablet 0.3 mg PO DAILY tramadol 50 mg 50 mg PO DAILY PRN (Reason: Pain (Scale Score 4-6)) Discontinued acetaminophen-codeine 300-30 mg tablet 1 tab BEDTIME PRN (Reason: Pain (Scale Score 4-6)) Follow up/Referrals: Caity Lee MD [Primary Care Provider] - Diet/Activity/Treatments Diet: Diet as Tolerated Activity: As tolerated Visit Report/Discharge Packet Instructions: DI for Prescription Opioid Use Discharge Data Primary Care Provider: Caity Lee Quality VTE Deep Vein Thrombosis/Pulmonary Embolism Present on Admission: No
[2022-05-19 12:00] VITALS: O2SAT 99
== END 2022-05-19 13:52 | disposition home or self-care (01) | DRG 603 ==
LOC: ED 14:51 → AC 15:01
PROVIDERS: Admitting Provider Internal Medicine; Emergency Provider Emergency Medicine; Family Provider Internal Medicine; PCP Internal Medicine; Referring Provider Emergency Medicine; Visit Provider Internal Medicine
DX: L03.116 Cellulitis of left lower limb (principal); I10 Essential (primary) hypertension; E03.9 Hypothyroidism, unspecified; Z20.822 Contact with and (suspected) exposure to COVID-19; Z87.891 Personal history of nicotine dependence
CPT/HCPCS: 10140; 36415; 73630; 73720; 80053; 83735; 84145; 85025; 85651; 86140; 87040; 87070; 87205; 87635; 96365; 96366; 99284; C9803; A9579; J0696; J1170; J1650

== ENCOUNTER → 2022-06-06 09:27 | Outpatient (CLI) | payer MEDICARE, BC, SELFPAY ==
[2022-05-18 16:31] VITALS: BMI 29.2
== END ==
PROVIDERS: Family Provider Internal Medicine; PCP Internal Medicine; Referring Provider Internal Medicine; Visit Provider Family Medicine
DX: S91.302A Unspecified open wound, left foot, initial encounter (principal); R60.0 Localized edema; M79.672 Pain in left foot
CPT/HCPCS: 11042; 99204; 99213

== ENCOUNTER → 2022-06-12 08:45 | Outpatient (CLI) | payer MEDICARE, BC, SELFPAY ==
[2022-05-18 16:31] VITALS: BMI 29.2
== END ==
PROVIDERS: Family Provider Internal Medicine; PCP Internal Medicine; Referring Provider Internal Medicine; Visit Provider Family Medicine
DX: S91.302D Unspecified open wound, left foot, subsequent encounter (principal)
CPT/HCPCS: 99212